=== PATIENT | female | born 1985 ===

== ENCOUNTER 2023-09-04 04:14 | Emergency (ER) | payer BC, SELFPAY ==
--- NOTE | 2023-09-04 05:08 | DI.US.S_ITS ---
PROCEDURE: US OB LIMITED INDICATIONS: Vaginal bleeding OUTSIDE/PRIOR DATING DATA: Last menstrual period (LMP): June 04, 2023. LMP-based estimated date of delivery (NASHUL): February 20, 2024. First dating scan (date and location): September 04, 2023. Estimated date of delivery (ANSHUL) from first dating scan: February 18, 2024. TECHNIQUE: Real-time scanning was performed of the fetus, with image documentation. Endovaginal scanning: Performed COMPARISON: None. FINDINGS: A single living intrauterine gestation is present. Presentation: Variable. Placenta: Placental position is left anterior, without previa. However, distal tip of the placenta measures approximately 0.7 cm from the internal cervical. There is also a curvilinear heterogeneously hypoechoic focus noted at the right inferior margin of the uterus measuring 8.3 x 5.0 x 2.3 cm, possibly representing perigestational hemorrhage. Amniotic fluid index: Appears subjectively within normal limits. heart rate: 130 beats per minute. Maternal cervical canal: Transvaginal measurement of 4.6 cm with trace endocervical fluid noted. No sonographic findings to suggest cervical incompetence. Clinically estimated gestational age: 15 weeks and 6 days Biparietal diameter: 3.3 cm, 16 weeks and 2 days Head circumference: 12.6 cm, 16 weeks and 2 days Abdominal circumference: 10.5 cm, 16 weeks and 3 days Femur length: 1.9 cm, 15 weeks and days Estimated sonographic gestational age from today's measurements is approximately 16 weeks and 1 day Estimated weight of approximately 145 g which correlates with the 94th percentile IMPRESSION: Single living intrauterine gestation with estimated sonographic gestational age of approximately 16 weeks and 1 day versus 15 weeks and 5 days by IVF transfer date. Small hypoechoic structure adjacent to the amnion measuring 8.3 x 5.0 x 2.3 cm which may represent a possible perigestational hemorrhage. Recommend clinical and sonographic follow-up. Low lying placenta with tip of the placental edge measuring 0.7 cm from the internal cervical os. Attention can be made on follow-up imaging. No significant discrepancy with the shift superintendent caustic cresylate radiology preliminary report. Dictated by: Kayden Barajas M.D. on 09/04/2023 at 8:41 Approved by: Kayden Barajas M.D. on 09/04/2023 at 8:49
[2023-09-04] MEDS: RHO(D) IMMUNE GLOBULIN 1,500 UNIT SYRINGE 1500 UNIT IM (06:25)
--- NOTE | 2023-09-04 13:07 | PC.NURSE ---
[facility] downtime began 09/03/231999 and continued throughout the patient's stay. Refer to paper documentation.
[2023-09-04 19:51] LABS: Add Manual Diff / Slide Review NO; Alanine Aminotransferase 11 IU/L (<35); Albumin Globulin Ratio 1.4 (1.0-2.8); Alkaline Phosphatase 50 U/L (38-126); Aspartate Aminotransferase 18 IU/L (14-36); BUN Creatinine Ratio 19.3 (6-22); Basophils Absolute Auto 0 /uL (0-100); Basophils Percent Auto 0.5 % (0-2); Bilirubin Total 0.3 mg/dL (0.2-1.3); Blood Urea Nitrogen 11 mg/dL (7-17); Calcium 8.4 mg/dL (8.4-10.2); Carbon Dioxide 24 mmol/L (22-32); Chloride 109 mmol/L (98-107); Eosinophils Absolute Auto 100 /uL (0-450); Eosinophils Percent Auto 1.4 % (2-4); Estimated Glomerular Filt Rate > 60 mL/min (>60); Globulin 2.8 g/dL (1.7-4.1); Glucose 82 mg/dL (70-100); HCG Quantitative /Beta subunit 10713 mIU/mL; HEMOLYSIS < 15 (0-50); Hemoglobin 11.1 g/dL (12.0-16.0); Lymphocytes Absolute Auto 2200 /uL (1100-4500); Lymphocytes Percent Auto 28.9 % (25-40); Mean Corpuscular HGB Conc 33.7 % (30-36); Mean Corpuscular Hemoglobin 29.4 PG (26-34); Mean Corpuscular Volume 87.2 fL (80-100); Monocytes Absolute Auto 500 /uL (0-900); Monocytes Percent Auto 6.2 % (3-14); Neutrophils Absolute Auto 4700 /uL (1500-7000); Platelet Count 162 X10^3/uL (150-400); Potassium 3.4 mmol/L (3.4-5.1); Red Blood Cell Count 3.78 X10^6/uL (4.0-5.2); Red Cell Distribution Width 14.1 % (11.6-14.8); Sodium 136 mmol/L (137-145); Total Protein 6.8 g/dL (6.3-8.2); White Blood Cell Count 7.5 X10^3/uL (4.5-11.0)
== END 2023-09-04 08:00 | disposition home or self-care (01) ==
PROVIDERS: Emergency Provider Emergency Medicine
DX: O20.0 Threatened abortion (principal); Z3A.16 16 weeks gestation of pregnancy; Z67.41 Type O blood, Rh negative
CPT/HCPCS: 76815; 76817; 80053; 84702; 85025; 86900; 86901; 96372; 99283; J2790